=== PATIENT | female | born 1960 | race Caucasian/White ===

== ENCOUNTER → 2016-03-20 | Outpatient (CLI) | payer OTHER ==
[~2016-03-20] MED LIST: CLONAZEPAM2 MG PO; REMERON30 M2 PO; TRAZODONE HCL100 MG PO; TRILEPTAL300 MG PO; VENLAFAXINE HCL75 MG PO
[2016-03-20 12:48] LABS: TYPE OF FLUID PLEURAL
[2016-03-20 13:11] LABS: BODY FLUID RBC'S 37000 /MM^3 (0-100); BODY FLUID WBC'S 1365 /MM^3 (0-500)
[2016-03-20 13:28] LABS: BODY FLUID EOSINOPHILS 2 % (0-25); MONO RAW COUNT 95; MONONUCLEAR WBC'S 95 %; POLY RAW COUNT 3; POLYNUCLEAR WBC'S 3 % (0-25)
[2016-03-20 13:39] LABS: BODY FLUID LDH 266 IU/L; BODY FLUID PROTEIN 3.9 G/DL
== END | disposition home or self-care (01) ==
LOC: OPR 09:42 → EDSTATUS 10:00
PROVIDERS: Radiology Diagnostic Radiology
DX: J90 Pleural effusion, not elsewhere classified (principal); R22.2 Localized swelling, mass and lump, trunk
CPT/HCPCS: 76604; 77012; 82945; 83615 91; 84157; 87070; 87075; 87205; 88108; 88305; 89051